=== PATIENT | female | born 1985 | race Caucasian/White ===

== ENCOUNTER 2023-11-13 16:54 | Emergency (ER) | payer BC, MEDICAID ==
[~2023-11-13] VITALS: Ht 160 cm; Wt 127.5 kg
[2023-11-13 17:33] LABS: BASOPHILS % (AUTO) 0.3 % (0.0-2.0); EOSINOPHILS # (AUTO) 0.2 K/uL (0.0-0.4); EOSINOPHILS % (AUTO) 1.3 % (0.0-4.0); HEMATOCRIT 35.5 % (36-48); LYMPHOCYTES # (AUTO) 4.2 K/uL (1.0-5.5); LYMPHOCYTES % (AUTO) 27.5 % (20.5-51.5); MEAN CORPUSCULAR HEMOGLOBIN 30 pg (27-31); MEAN CORPUSCULAR HGB CONC 34 % (32-36); MEAN CORPUSCULAR VOLUME 87 fL (79.0-98.0); MONOCYTES # (AUTO) 0.7 K/uL (0.0-1.0); MONOCYTES % (AUTO) 4.6 % (1.7-9.3); NEUTROPHILS % (AUTO) 66.3 % (40.0-70.0); PLATELET COUNT (AUTO) 505 K/uL (130-430); RED BLOOD CELL COUNT(AUTO) 4.06 MIL/uL (4.2-6.2); RED CELL DISTRIBUTION WIDTH 14.7 % (9.0-15.0); WHITE BLOOD COUNT (AUTO) 15.1 K/uL (4.8-10.8)
[2023-11-13 17:36] VITALS: BP_SYST 107; PULSE 100; RESP 15; TEMP 97.7; O2SAT 95
[2023-11-13 17:41] LABS: ALBUMIN 3.3 g/dL (3.4-4.8); CALCIUM 8.2 mg/dL (8.4-11.0); CREATININE 0.87 mg/dL (0.55-1.30); POTASSIUM 3.5 mmol/L (3.5-5.1); TOTAL BILIRUBIN 0.3 mg/dL (0.0-1.0); TOTAL PROTEIN, SERUM 6.9 g/dL (6.4-8.3)
[2023-11-13 17:47] LABS: SERUM HCG (QUALITATIVE) NEGATIVE (NEGATIVE)
[2023-11-13 17:50] LABS: BILIRUBIN,DIRECT 0.1 mg/dL (0.0-0.3)
[2023-11-13] MEDS ORDERED: HYDROcodone/ACETAMIN 7.5-325 MG TAB PO ONE (19:15)
[2023-11-13] MEDS ORDERED: IBUPROFEN 800 MG TABLET PO ONE (19:15)
[2023-11-13 19:37] LABS: BILIRUBIN,URINE NEGATIVE (NEGATIVE); BLOOD, URINE NEGATIVE (NEGATIVE); CLARITY/URINE CLEAR (CLEAR); COLOR,URINE YELLOW (YELLOW); GLUCOSE,URINE NEGATIVE (NEGATIVE); KETONES,URINE NEGATIVE (NEGATIVE); LEUKOCYTE ESTERASE ,URINE NEGATIVE (NEGATIVE); NITRITE, URINE NEGATIVE (NEGATIVE); PROTEIN URINE NEGATIVE (NEGATIVE)
[2023-11-13] MEDS ORDERED: TRAM50TA2 PO (20:03)
[2023-11-13] MEDS ORDERED: AZITHROMYCIN 250 MG TABLET PO ONE (20:15)
[2023-11-13] MEDS ORDERED: cefTRIAXone 250 MG VIAL IM ONE (20:15)
[2023-11-13] MEDS ORDERED: LIDOCAINE 1%, 20 ML MDV 20 ML ONE (20:26)
[2023-11-13] MEDS ORDERED: HYDR-3917 PO (21:04)
[2023-11-13] MEDS ORDERED: IBUP-1969 PO (21:07)
[2023-11-13 21:23] VITALS: BP_SYST 110; PULSE 97; RESP 16; TEMP 97.9; O2SAT 96
[2023-11-14] MEDS ORDERED: HYDR-3917 PO (09:34)
[2023-11-14] MEDS ORDERED: TRAM50TA2 PO (09:34)
== END 2023-11-13 21:23 | disposition home or self-care (01) ==
LOC: SED 16:54
DX: R10.30 Lower abdominal pain, unspecified (principal); R30.0 Dysuria; R35.0 Frequency of micturition; Z88.1 Allergy status to other antibiotic agents; Z88.2 Allergy status to sulfonamides; Z88.6 Allergy status to analgesic agent; Z88.8 Allergy status to other drugs, medicaments and biological substances; Z91.040 Latex allergy status; Z91.041 Radiographic dye allergy status; Z79.899 Other long term (current) drug therapy
CPT/HCPCS: 99285; 74176; 80076; 80048; 81001; 82150; 84703; 83690; 85025; 36415; 76376; 81025; 96372; 81003; 82397; J0696; J2001; Q0144